=== PATIENT | female | born 1935 | race Caucasian/White ===

== ENCOUNTER → 2016-12-04 | Outpatient (CLI) | payer MEDICARE, OTHER ==
[~2016-12-04] MED LIST: ALEVE220 M1 PO; ASPIRIN (CHILDR81 MG PO; BENADRYL25 MG PO; COLACE100 MG PO; CORAL CALCIUM1 EAC2 PO; CORDARONE,PACE200 MG PO; LIPITOR80 MG PO; MIRALAX17 GM PO; THERA-VITE W/ B1 TAB PO; TYLENOL325 MG PO; VITAMIN D1000 UNIT PO
[2016-12-04 08:00] LABS: CREATININE 0.8 mg/dL (0.5-1.1)
== END | disposition disaster alternative care site (69) ==
LOC: GLAB 07:00 → GRAD 08:00 → GLAB 12-11 10:00 → GRAD 12-11 11:00
PROVIDERS: Neurological Surgery
DX: D32.0 Benign neoplasm of cerebral meninges (principal); M47.892 Other spondylosis, cervical region; M48.02 Spinal stenosis, cervical region; R26.9 Unspecified abnormalities of gait and mobility
CPT/HCPCS: A9577

== ENCOUNTER → 2016-12-24 | Outpatient (CLI) | payer MEDICARE, OTHER ==
[2016-12-24 11:35] LABS: INR - (THERAPEUTIC) 0.96 (0.92-1.07); PROTIME 10.1 SECONDS (9.8-11.4)
== END | disposition disaster alternative care site (69) ==
LOC: LGSMG 11:23
PROVIDERS: Obstetrics & Gynecology Obstetrics
DX: Z01.818 Encounter for other preprocedural examination (principal)

== ENCOUNTER → 2017-01-05 | Outpatient (CLI) | payer MEDICARE, OTHER ==
--- NOTE | ~2017-01-05 | ESTC ---
Cardiac Perfusion Imaging Demographics Patient Name TANYA Sol Gender Female Patient Number [id number] Race Visit Number [id number] Ethnicity Corporate ID Room Number Accession Number [id number] Height 62 inches Date of 1935 Weight 92 pounds MD Kennedi Dunn Date of study 01/05/2017 Physician Caleb Supervising /MICHAELA CAO Technologist Angella Ellis Ordering Physician Areli Soliz Stress claims technician Stress ECG Reading Sorin Nurse Christen Pozo RN Physician Caleb Colby Procedure Procedure Type: Nuclear Stress Test:Pharmacological, Cardiolite Stress Test Procedure Start time: 01/05/2017 00:00 Indications: Abnormal rest ECG and pre surgical clearance. Risk Factors The patient risk factors include:hypercholesterolemia. Conclusions Summary Perfusion Images: The overall quality of the study is fair, due to gastrointestinal tracer uptake. Left ventricular cavity is noted to be normal on the stress and rest studies. There is no evidence of abnormal lung activity. The right ventricle is not visualized and cannot be assessed. Stress SPECT images demonstrate homogenous tracer distribution throughout the myocardium . Gated SPECT imaging reveals normal myocardial thickening and wall motion. The left ventricular ejection fraction was calculated to be >70%. Impression ECG portion of stress test is clinically negative for ischemia by diagnostic criteria. Myocardial perfusion imaging is normal. Overall left ventricular systolic function was normal without regional wall motion abnormalities. There are no previous studies for comparison . Stress Protocols Resting ECG Sinus rhythm Pre-stress physical exam: Patient assessed by Dr. Dunn prior to testing. Predicted HR: 141 bpm ECG Findings Non specific ST-T wave changes Arrhythmias No rhythm abnormality. Symptoms Palpitations. Stress Interpretation Appropriate hemodynamic response to Lexiscan. No significant ST-T wave changes with Lexiscan. ECG portion is negative for ischemia by diagnostic criteria. Imaging Results Applied corrections - Motion correction applied High risk findings Summed scores - Summed stress score: 3 - Summed rest score: 6 - Summed difference score: -3 Stress ejection Ejection fraction:86 % EDV :50 ml ESV :7 ml Stroke volume :43 ml LV mass :83 gr Imaging Protocols Rest Stress Isotope:Tc99m Sestamibi IV Isotope: Tc99m Sestamibi IV Isotope dose:10.8 mCi Isotope dose:33.3 mCi Date:01/05/2017 07:56 Date:01/05/2017 09:32 Technique: SPECT Technique: Gated Supine SPECT Supine Scan Time:45-60 minutes post injection Procedure Medications - Regadenoson (Lexiscan) 0.4 mg IV over 10-15 sec. I.V. 0.4 mg. Medications administered per verbal order and read back to physician prior to administration. Medical History Admission Data Admission date: 01/05/2017 Admission Time: 07:13 Hospital Status: Outpatient. Signatures dtt: CALEB DUNN dtd: 01/05/17 [place] Physician Self Edit
== END | disposition disaster alternative care site (69) ==
LOC: GRAD 07:13
DX: R94.31 Abnormal electrocardiogram [ECG] [EKG] (principal); R26.9 Unspecified abnormalities of gait and mobility; I10 Essential (primary) hypertension; E78.00 Pure hypercholesterolemia, unspecified; Z74.09 Other reduced mobility
CPT/HCPCS: A9500; J2785

== ENCOUNTER 2017-01-07 11:00 | Inpatient (IN) | payer MEDICARE, OTHER ==
[~2017-01-07] VITALS: Ht 157.5 cm; Wt 43.2 kg
--- NOTE | ~2017-01-07 | CON ---
PATIENT'S NAME: RUPAL MARTÍNEZ [facility] AGE: 81 Y [address] ROOM: [place] [address] LOCATION: [facility] ADMIT DATE: 01/08/2017 Consultation DISCHARGE DATE: FAMILY PHYSICIAN: CHARLES SUN MD ATTENDING PHYSICIAN: Talia Mcclendon REFERRING PHYSICIAN: Keaton Choudhary MD REFERRING PHYSICIAN: Talia Mcclendon MD REASON FOR CONSULT: New atrial fibrillation. HISTORY OF PRESENT ILLNESS: This is a 81-year-old white female who was originally hospitalized for an anterior cervical diskectomy on 01/08/2017. Her preop evaluation included a stress test that showed no provocable ischemia with an EF of 86% as well as an echocardiogram that was done on 12/24/2016. The EF then was 60% to 65% and showed mild left ventricular hypertrophy and mild mitral valve regurgitation with mild tricuspid regurgitation. She was doing fairly well postop, but on 01/10, around 3 a.m. in the morning, she converted to an atrial fibrillation with rapid ventricular response. She was reportedly mildly confused. Denied complaints of chest pain or lightheadedness and could not feel the palpitations. Her heart rate was in the 140s to 160s, and her blood pressure was 107/73. She is now alert, oriented, and answers questions appropriately. She denies ever feeling any palpitations, lightheadedness, or off-balance sensations. She does have problems with right-sided weakness, but this was thought to be related to her spinal stenosis. She denies any problems with exertional chest pain. She denies shortness of breath, orthopnea, or PND. She has had problems recently with mild edema noted in her right leg. She denies problems with falls. PAST MEDICAL HISTORY: 1. Spinal stenosis. 2. New paroxysmal atrial fibrillation. 3. Benign cerebral meningioma. 4. White-coat syndrome hypertension. 5. Hyperlipidemia. 6. Osteoporosis. 7. Right footdrop. 8. History of adrenal benign tumor. 9. Dry eye syndrome. 10. Scoliosis. PAST SURGICAL HISTORY: 1. She has had adrenal gland surgery. PATIENT'S NAME: RUPAL MARTÍNEZ [facility] AGE: 81 Y [address] ROOM: [place] [address] LOCATION: [facility] ADMIT DATE: 01/08/2017 Consultation DISCHARGE DATE: FAMILY PHYSICIAN: CHARLES SUN MD ATTENDING PHYSICIAN: Talia Mcclendon 2. Cataract surgery. 3. Colon surgery. 4. Colonoscopy for polypectomy. 5. D and C. 6. Knee surgery. 7. Neuroplasty of median nerve at carpal tunnel. 8. Rectal surgery for polypectomy. 9. Sinus surgery. 10. Spinal tap for drainage of fluid. 11. Thyroid surgery. 12. Tonsillectomy. ALLERGIES: NONE TO MEDICATIONS. HOME MEDICATIONS: 1. Coral Calcium one capsule t.i.d. 2. Vitamin D3 at 1000 units every day. 3. Multivitamin daily. 4. Aspirin 81 mg daily. 5. Lipitor 80 mg daily. 6. Lopressor 25 mg b.i.d. SOCIAL HISTORY: She has never smoked. She is . She has 2 boys. FAMILY HISTORY: Father of an OH at the age of 60. She has a brother who has a pacemaker. Her mother had congestive heart failure, sister had lung cancer, another brother who has AAA, and a sister with a subclavian aneurysm. REVIEW OF SYSTEMS: GENERAL: She denies fevers or chills. HEAD: No history of headache. EYES: No blurred vision. She wears corrective lenses. EARS: She does have some mild hearing loss. NOSE: No epistaxis or rhinorrhea. MOUTH: No gingival bleeding. THROAT: Denies sore throat. She does have some mild swallowing problems since her surgery. PULMONARY: No cough or hemoptysis. GASTROINTESTINAL: Negative for nausea today, although she has had some problems with nausea off and on. GENITOURINARY: Negative for urinary frequency. MUSCULOSKELETAL: She has problems with spinal stenosis. PATIENT'S NAME: RUPAL MARTÍNEZ [facility] AGE: 81 Y [address] ROOM: [id number] [place] [address] LOCATION: [facility] ADMIT DATE: 01/08/2017 Consultation DISCHARGE DATE: FAMILY PHYSICIAN: CHARLES SUN MD ATTENDING PHYSICIAN: Talia Mcclendon NEUROLOGIC: She is weak on her right side. PHYSICAL EXAMINATION: VITAL SIGNS: Blood pressure is 102/56, heart rate 66, and temperature is 98. She is 5 feet 2 inches and weighs 40.6 kg. GENERAL: She is alert and oriented. SKIN: Warm, dry, and pink. CARDIOVASCULAR: Regular, with normal S1 and S2. Her telemetry is showing normal sinus rhythm at this time. NECK: Without JVD or carotid bruits. ABDOMEN: Soft. Bowel sounds are present. EXTREMITIES: Currently, show no peripheral edema. She does have right footdrop. Distal pulses are 2+/4. ASSESSMENT: 1. Paroxysmal atrial fibrillation. She is now in a normal sinus rhythm. We will check a TSH and discuss further need for antiarrhythmic with Dr. Keaton Choudhary. Her recent stress test showed that she had a normal ejection fraction. 2. Elevated cardiac enzymes. Her troponin-I was 0.052 to 0.158 with a CK-MB of 2.6 to 2.9. We will discuss further recommendations with Dr. Keaton Choudhary. The assessment and plan, history of present illness, and physical exam are per Dr. Choudhary. We would like to thank Dr. Mcclendon and Dr. Hernandez for allowing us to participate in her care. SERGIO BATES APRN FOR MD DEIRDRE DUCKWORTH/oralia /[id number] d: 01/10/17 1626 t: 01/29/17 1620, CONSULTATION REPORT
--- NOTE | ~2017-01-07 | CON ---
PATIENT'S NAME: RUPAL MARTÍNEZ [facility] AGE: 81 Y [address] ROOM: [id number] [place], [place] [address] LOCATION: [facility]PCU ADMIT DATE: 01/08/2017 Consultation DISCHARGE DATE: FAMILY PHYSICIAN: CHARLES SUN MD ATTENDING PHYSICIAN: Talia Mcclendon REFERRING PHYSICIAN: Keaton Choudhary MD REASON FOR CONSULTATION: Atrial fibrillation with RVR, apparently new onset. CHIEF COMPLAINT: Right upper arm and right lower extremity weakness. HISTORY OF PRESENT ILLNESS: This is a 81-year-old female who underwent anterior cervical discectomy for her cervical stenosis causing her to have weakness in her right upper and right lower extremity. The procedure was done on January 08, 2017. After that, recovery was uneventful. However, on January 10, 2017 around 3 a.m., the patient was found to have a heart rate in the 140 to 150, blood pressure was in the high 90s to low 100s. The patient was asymptomatic. EKG was performed and it showed atrial fibrillation with RVR. Therefore, hospitalist team was consulted for new onset atrial fibrillation with RVR. Upon my examination, the patient denies any symptoms. She says that she denies any pain in the post surgical area and her weakness is improving, but still has some residual weakness. She denies any chest pain or shortness of breath or palpitation or lightheadedness or leg edema. She also states that she has never been told or has never been diagnosed with any coronary artery disease or atrial fibrillation or heart failure and she never had any heart surgery in the past either. She does complain that she has been having poor appetite and has really not eaten much in the last few days. The patient looks dry on my examination. REVIEW OF SYSTEMS: As mentioned in the history of present illness. All other systems were reviewed and were negative except as mentioned in the history of present illness. PAST MEDICAL HISTORY: 1. Hypertension. 2. Benign tumor of meningioma. 3. Spinal stenosis at multiple levels. 4. Her most recent transthoracic echo was performed on December 24, 2016, at that time the EF was 60% to 65% with mild left ventricular hypertrophy which is concentric and also mild mitral regurgitation and mild tricuspid regurgitation. 5. Her recent stress test for medical clearance was done on January 05, 2017. At that time, it was read as negative for ischemia without any regional wall motion abnormalities. ALLERGIES: NO KNOWN DRUG ALLERGIES. PATIENT'S NAME: RUPAL MARTÍNEZ [facility] AGE: 81 Y [address] ROOM: [id number] [place], [place] [address] LOCATION: [facility]U ADMIT DATE: 01/08/2017 Consultation DISCHARGE DATE: FAMILY PHYSICIAN: CHARLES SUN MD ATTENDING PHYSICIAN: Talia Mcclendon HOME MEDICATIONS: 1. Multivitamin 1 tablet p.o. daily. 2. Vitamin D3 of 1000 units p.o. every morning 1 tablet. 3. Calcium and magnesium oxide and vitamin D3 combination 1 capsule p.o. t.i.d. SOCIAL HISTORY: The patient denies any alcohol or cigarette or any illegal drug use. PAST SURGICAL HISTORY: 1. Status post right adrenalectomy in the past. 2. Cataract surgery. 3. History of colon surgery, details not clear. 4. Knee surgery. 5. Carpal tunnel surgery. 6. Thyroid surgery. 7. Tonsillectomy. FAMILY HISTORY: Father has a history of a heart and also gastric ulcer. She states that her father had an enlarged heart, but denies any myocardial infarction. Her mother also had heart problems. Her mother from myocardial infarction at the age of 60s. PHYSICAL EXAMINATION: VITAL SIGNS: At the time of my evaluation, heart rate was 140, blood pressure was 109/81, respirations 14, temperature 98, saturation 97% on room air. GENERAL APPEARANCE: The patient is alert and oriented x3. Currently, in no acute distress. HEENT: Pupils are equally round and reactive to light. Extraocular muscles intact. Anicteric sclerae. Nasal turbinates are normal bilaterally. CARDIOVASCULAR: Irregularly irregular rate and rhythm. No murmur. No rubs. No gallops. RESPIRATORY: Clear to auscultation. No rales. No rhonchi. No wheezing. No crackles. ABDOMEN: Soft, nontender, nondistended, bowel sounds present. No mass. EXTREMITIES: She has a trace +1 pitting edema in bilateral shins. NEUROLOGICAL: Remarkable for muscle weakness about 3/5 on the right upper extremity and also about 3/5 also in the right lower extremity. This is chronic for her. Otherwise, unremarkable. SKIN: No ulcer. No rash. No cyanosis. LABORATORY DATA: Currently, the only thing we have on the computer is INR which was 0.9 that PATIENT'S NAME: RUPAL MARTÍNEZ [facility] AGE: 81 Y [address] ROOM: [id number] [place], [place] [address] LOCATION: [facility]PCU ADMIT DATE: 01/08/2017 Consultation DISCHARGE DATE: FAMILY PHYSICIAN: CHARLES SUN MD ATTENDING PHYSICIAN: Talia Mcclendon was back in December 24, 2016. IMAGING DATA: EKG on January 10, 2017 at 2:45 a.m. show atrial fibrillation with RVR, heart rate of 146, QRS of 85 milliseconds. Compared to the prior EKG performed on December 24, 2016, was sinus rhythm, heart rate of 65. ASSESSMENT AND PLAN: 1. Regarding her new-onset atrial fibrillation with RVR: Will hydrate her with iv fluids and iv albumin and try lopressor to see if she self convert, if not, will transfer to PCU and keep iv fluids and iv albumin but will start amiodarone bolus then drip due to systolic BP in the low 100's. Her [id number] is high enough to warrant LTAC. However she just had recent cervical discectomy, I will try amiodarone drip due to soft SBP and continue iv fluids first to see if would self convert. Will get cardiology consult in AM and NPO in case requires cardioversion. Check cardiac enzymes and repeat and check lyes to keep K>4 and Mag>2. Will check TSH too. 2. Spinal stenosis s/p cervical diskectomy: Defer to Neurosurgery, patient denies pain at post surgical site. 3. Regarding her hypertension: She is not on any home medication. Will add medications if needed. 4. Regarding her deep vein thrombosis prophylaxis: Defer to Neurosurgery. Time spent in care on the day of consultation 35 minutes where 10 minutes was spent on chart review and the remainder of the time was spent on interview and physical examination and also on counseling. The counseling includes going over the plan of care with the patient and answered all of her questions and concerns to her satisfaction and I also went over the plan of care with the nurse. Further plan will depend on clinical course. Currently, the patient will be transferred to PCU if she does not respond to IV fluids and IV Lopressor and also IV albumin. MD TERESA GILLETTE/oralia /[id number] d: 01/10/17 0516 t: 01/20/17 2110, CONSULTATION REPORT
--- NOTE | ~2017-01-07 | DS ---
PATIENT'S NAME: RUPAL MARTÍNEZ [facility] AGE: 81 Y [address] ROOM: [address] [address] LOCATION: GPCU ADMIT DATE: 01/08/2017 Discharge Summary DISCHARGE DATE: 01/12/2017 FAMILY PHYSICIAN: Martínez Singleton MD ATTENDING PHYSICIAN: Talia Chang REASON FOR ADMISSION: The patient was a scheduled admission for an elective procedure. PROCEDURES PERFORMED: Anterior cervical diskectomy with fusion and plating at C4-C5, C5-C6, and C6-C7. The patient presented with right-sided weakness, and after an exhausted investigation, the only thing found that could possibly explain her findings were the cervical spinal stenosis. TREATMENT RENDERED: The patient was taken to the operating room on the day of admission, and underwent the above surgical procedure. Her surgery was uncomplicated. Postoperatively, the patient was recovering well. However, on the night of January 10, she developed an arrhythmia requiring transfer to the progressive care unit and a Cardiology consult. The patient was treated by Cardiology. Their note is on the chart. From the neurosurgery standpoint, she continued to do well. She did not really get much strength back on the right side, but this may just be because it is still too early after surgery. The patient was also cared for by the hospitalists. By the 12 of January, she had met all the criteria for dismissal. She was discharged home on that day with arrangements to be followed up in clinic both by Cardiology as well as by Neurosurgery. FINAL DIAGNOSES: 1. Cervical spondylosis with radiculopathy and myelopathy. 2. Atrial fibrillation. TALIA CHANG MD CNO/modl /[id number] d: 01/19/17399 t: 01/20/171930, DISCHARGE SUMMARY
--- NOTE | ~2017-01-07 | OR ---
PATIENT'S NAME: RUPAL MARTÍNEZ [facility] AGE: 81 Y [address] ROOM: [id number] [place] [id number] LOCATION: GPCU ADMIT DATE: 01/08/2017 OR/Procedure Report DISCHARGE DATE: FAMILY PHYSICIAN: CHARLES SUN MD ATTENDING PHYSICIAN: Talia Mcclendon SURGEON: Talai Mcclendon MD BROTH MIXER: Darby Umanzor CST. DATE OF PROCEDURE: 01/08/2017 PREOPERATIVE DIAGNOSIS: Cervical spinal stenosis with radiculopathy. POSTOPERATIVE DIAGNOSIS: Cervical spinal stenosis with radiculopathy. PROCEDURES PERFORMED: 1. Anterior cervical diskectomy with decompression of neural elements and foraminotomy at C4-C5. 2. Anterior cervical diskectomy with decompression of neural elements and foraminotomy at C5-C6. 3. Anterior cervical diskectomy with decompression of neural elements and foraminotomy at C6-C7. 4. Structural allograft and morselized allograft fusion at C4-C5. 5. Structural and morselized allograft fusion at C5-C6. 6. Structural and morselized allograft fusion at C6-C7. 7. Use of anterior cervical plate from C4 to C7. ANESTHESIA: General. HISTORY: The patient is a 81-year-old female who presented with right-sided weakness. The patient was investigated extensively for the cause of the weakness, but no definite cause was found. The investigations included MRI of the brain and MRI of the cervical spine. The brain MRI showed a small meningioma, which was not felt to be large enough to be causing the patient's weakness. Cervical spine showed areas of spinal cord compression and in the absence of any other cause, we wondered whether this could be part of the reason for her weakness. With this in mind, surgery was recommended. The procedure, benefits, and risks were discussed with the patient and her . With consent, she was taken to the operating room for surgery. PROCEDURE IN DETAIL: In the operating room, the patient was placed in a supine position and anesthesia was induced. She was intubated. A roll was placed under her shoulders and her neck was kept in extension. An incision was marked out along the anterior border of the right sternomastoid muscle. The whole area was prepped and draped in a sterile fashion. Local anesthesia was infiltrated. The incision was opened with a #10 blade and the platysma was divided. Dissection continued along the anterior border of the PATIENT'S NAME: RUPAL MARTÍNEZ [facility] AGE: 81 Y [address] ROOM: [id number] [place], [place] [address] [facility] ADMIT DATE: 01/08/2017 OR/Procedure Report DISCHARGE DATE: FAMILY PHYSICIAN: CHARLES SUN MD ATTENDING PHYSICIAN: Talia Mcclendon sternomastoid until the omohyoid muscle was seen. Working in the space between the omohyoid and sternomastoid muscles, a plane was developed to the anterior surface of the cervical spine. Self-retaining retractors were placed. Intraoperative x-ray was obtained to confirm that we were at the desired level. Diskectomy was carried out at C4-C5, C5-C6, and C6-C7. The disks were incised with a #15 blade and pituitary rongeur was used to remove disk material. The curette was used to scrape out more disk, which was removed with a rongeur. The microscope was brought in, and under microscopic vision, the rest of the disk was removed and the posterior osteophytes along with the posterior longitudinal ligament were also removed. Distraction pins were used to distract each disk space to help with visualization and removal of the posterior osteophytes and the PLL. Having completed the diskectomy, appropriate-sized pieces of bone grafts were inserted into each disk space, the bone grafts were prefilled with demineralized bone matrix. We had a very snug fit at each level. The metal plate was then used to support the fusion and 2 screws were affixed to C4, C5, C6, and C7. Another x-ray was obtained to confirm that the graft screw and plates were in satisfactory position. Irrigation was used to wash out the debris and hemostasis was achieved. The incision was closed with appropriate suture materials and a sterile dressing was applied. The patient's anesthesia was reversed. She was extubated and taken to the recovery room to continue her recovery. I was present at and performed every aspect of this procedure, assisted at some stages by operating room nurses. There were no apparent intraoperative complications. Swabs, needles, and instruments were all accounted for at the end of the case. Estimated blood loss was less than 100 mL and there was no reason for blood transfusion. It remains to be seen whether the patient will benefit from this procedure as far as the right-sided weakness, however, no other cause could be found to explain the weakness, which is why we embarked on the surgery at this time. MD ANIBAL ROJAS/jaylinl /[id number] d: 01/11/17 1939 t: 01/11/17 2247, OPERATIVE SUMMARY
[~2017-01-07 11:00] MED LIST changes: -ALEVE220 M1 PO; -ASPIRIN (CHILDR81 MG PO; -BENADRYL25 MG PO; -COLACE100 MG PO; -CORDARONE,PACE200 MG PO; -LIPITOR80 MG PO; -MIRALAX17 GM PO; -TYLENOL325 MG PO
[2017-01-10 04:17] LABS: ANION GAP 9.9 (10.0-19.0); CALCIUM 9.1 mg/dL (8.5-10.5); CREATININE 0.6 mg/dL (0.5-1.1); MAGNESIUM 1.8 mg/dL (1.8-2.6); POTASSIUM 3.9 mMol/L (3.7-5.1)
[2017-01-11 11:19] LABS: ALBUMIN 3.4 gm/dL (3.5-5.0); TOTAL BILIRUBIN 0.7 mg/dL (0.0-1.5); TOTAL PROTEIN 6.8 g/dL (6.0-8.4)
[2017-01-12 02:45] LABS: ANION GAP 12.4 (10.0-19.0); BLOOD UREA NITROGEN 4 mg/dL (6-24); CHLORIDE 107 mMol/L (96-110); CO2 24 mMol/L (22-32); CREATININE 0.4 mg/dL (0.5-1.1); MAGNESIUM 1.7 mg/dL (1.8-2.6); POTASSIUM 3.4 mMol/L (3.7-5.1); SODIUM 140 mMol/L (135-145)
[2017-01-12] MEDS ORDERED: CORDARONE,PACE200 MG PO (10:44)
[2017-01-12] MEDS ORDERED: ASPIRIN (CHILDR81 MG PO (10:45)
[2017-01-12] MEDS ORDERED: LIPITOR80 MG PO (10:47)
[2017-01-12] MEDS ORDERED: TYLENOL325 MG PO (10:51)
== END 2017-01-12 11:55 | disposition disaster alternative care site (69) | DRG 472 ==
LOC: GPCU 01-08 08:15 → G3N 01-08 08:15 → GPCU 01-10 04:20
PROVIDERS: Internal Medicine; Internal Medicine Interventional Cardiology; ADMIT Neurological Surgery
DX: M47.812 Spondylosis without myelopathy or radiculopathy, cervical region (principal); G37.8 Other specified demyelinating diseases of central nervous system; G81.91 Hemiplegia, unspecified affecting right dominant side; I48.0 Paroxysmal atrial fibrillation; G35 Multiple sclerosis; I10 Essential (primary) hypertension; E55.9 Vitamin D deficiency, unspecified; E78.5 Hyperlipidemia, unspecified; M47.9 Spondylosis, unspecified; M81.0 Age-related osteoporosis without current pathological fracture
CPT/HCPCS: A9500; C1713; J0282; J0690; J1100; J2001; J2250; J2405; J3475; J3480; J7030; J7040; J7050; J7060; J7120; P9045

== ENCOUNTER 2017-01-24 11:33 | Inpatient (IN) | payer MEDICARE, OTHER ==
[~2017-01-24] VITALS: Ht 157.5 cm; Wt 39.0 kg
--- NOTE | ~2017-01-24 | HP ---
PATIENT'S NAME: RUPAL MARTÍNEZ [facility] AGE: 81 Y [address] ROOM: [address] [address] LOCATION: [facility] [place] ADMIT DATE: 01/24/2017 History & Physical DISCHARGE DATE: FAMILY PHYSICIAN: CHARLES SUN MD ATTENDING PHYSICIAN: LUIS FERNANDO BELL DATE OF SERVICE: CHIEF COMPLAINT: Right lower extremity weakness, unsteady gait. HISTORY OF PRESENT ILLNESS: This is a 81-year-old female with a history cervical spinal stenosis, status post recent fusion by Dr. Mcclendon a few weeks ago, mostly due to persistent right-sided weakness. The patient presents here today with worsening weakness of the right lower extremity. The patient tells me that she went to get up and use the toilet yesterday evening, and after using the toilet, all of a sudden, she was not able to get up from the toilet seat and described her left leg felt like was almost weight. She got up with the help of her and watched herself overnight, but symptoms did not improve. Although she does have significant weakness on the right upper and lower extremities, this current episode is worse than weakness that she has at baseline. The patient has had an extensive workup with Dr. Mcclendon prior to her cervical spine diskectomy with fusion and plating that she had done at beginning of December. The patient otherwise denies any back pain, urinary or bowel incontinence. Sensation appears to be intact to right lower extremity. Denies any cough, shortness of breath. Does describe dizziness and lightheadedness during this time as well. Although her appetite is poor denies any nausea, vomiting. Also denies any dark-looking stool or any signs of acute blood loss. PAST MEDICAL HISTORY: 1. The patient has a history of paroxysmal atrial fibrillation that was identified shortly after surgery this past month. She is on amiodarone and baby aspirin currently. 2. Benign meningoma. 3. Spinal stenosis at multiple levels. SOCIAL HISTORY: The patient denies any history of alcohol, cigarette, or illegal drug use history. FAMILY HISTORY: The patient has history of heart disease and gastric ulcer in her father. Mother also has a history of CT in her 60s. PATIENT'S NAME: RUPAL MARTÍNEZ [facility] AGE: 81 Y [address] ROOM: [address] [address] LOCATION: [facility] [place] ADMIT DATE: 01/24/2017 History & Physical DISCHARGE DATE: FAMILY PHYSICIAN: CHARLES SUN MD ATTENDING PHYSICIAN: LUIS FERNANDO BELL PHYSICAL EXAMINATION: VITAL SIGNS: Blood pressure 131/63, pulse 60, respiratory rate 16, temperature 97.1, saturating 100% on room air. GENERAL: The patient is awake, alert, oriented x3, in no acute distress. HEENT: The patient exhibits significant conjunctival pallor. SKIN: Pale appearing but no rash or lesions noted. CHEST: Clear to auscultation bilaterally. HEART: S1, S2, regular rate and rhythm. ABDOMEN: Soft, nontender, nondistended. EXTREMITIES: Without edema. MUSCULOSKELETAL: No joint effusion, erythema, or point tenderness noted. NEURO: The patient has 1 to 2 out of 5 strength on right lower extremity and a 4/5 strength on left lower extremity, also has 2 to 3 out of 5 strength in right upper extremity and 4/5 strength on left upper extremity. ASSESSMENT AND PLAN: 1. Right lower extremity weakness, acute in nature. The patient does have baseline right-sided weakness that has had extensive workup by Dr. Mcclendon during her previous admission in December. The patient comes here with a sudden worsening of right lower weakness in her legs. She did have recent cervical spine fusion and plating done by Dr. Mcclendon in December as a way to help with her weakness. At this point, we will consult Neurosurgery and have Dr. Mcclendon see and evaluate, and we will await for his recommendation. 2. Symptomatic anemia. Hemoglobin 8.3. Unsure what baseline is. We will give some IV iron for 2 doses and do some iron studies and Hemoccult checks as well. The patient has had a colonoscopy a couple of times, but the last one was several years ago as a screening colonoscopy. She would probably benefit from GI evaluation likely in an outpatient setting. 3. Severe protein-calorie malnutrition. We will give supplementation during hospital and encourage p.o. intake. 4. Unsteady gait. This is related to her chronic right-sided weakness, which is worse now with sudden exacerbation of her right lower leg weakness. We will wait for Neurosurgery evaluation. In the meantime, we will have PT, OT evaluate and work with the patient as well. 5. History of atrial fibrillation. She had a brief episode postop. She is on amiodarone. We will continue this and baby aspirin and has had cardiology evaluation during that time. 6. Deep venous thrombosis. We will use SCDs for now noting anemia. LUIS FENRANDO BELL MD PATIENT'S NAME: RUPAL MARTÍNEZ [facility] AGE: 81 Y [address] ROOM: [place] [address] LOCATION: [facility] [place] ADMIT DATE: 01/24/2017 History & Physical DISCHARGE DATE: FAMILY PHYSICIAN: CHARLES SUN MD ATTENDING PHYSICIAN: LUIS FERNANDO BELL/oralia /[id number] D: T: [id number] HISTORY & PHYSICAL
--- NOTE | ~2017-01-24 | DS ---
PATIENT'S NAME: RUPAL MARTÍNEZ [facility] AGE: 81 Y [address] ROOM: [place] [address] LOCATION: [facility] ADMIT DATE: 01/26/2017 Discharge Summary DISCHARGE DATE: 01/29/2017 FAMILY PHYSICIAN: Martínez Singleton MD ATTENDING PHYSICIAN: Becca Dang PRINCIPAL DIAGNOSES: 1. Acute right lower extremity weakness. 2. Severe anemia, requiring transfusion. 3. Severe protein-calorie malnutrition. 4. Physical deconditioning. HOSPITAL COURSE: This is a 81-year-old female with a recent history of cervical spinal fusion and diskectomy by Dr. Mcclendon who initially presented with an acute worsening of her right lower leg weakness. The patient was promptly evaluated by Neurosurgery and had a repeat MRI done, which did not show any significant changes from that standpoint. The patient continued to do well with physical therapy and has improved from that standpoint. The patient incidentally on initial evaluation was noted to have a hemoglobin of 8.3 without really known baseline, but a repeat hemoglobin had dropped to less than 7 requiring 1 unit of packed cells transfusion. The patient's hemoglobin has stayed stable at above 8.5 since and the patient has symptomatically improved significantly since. Her Hemoccult stool test have become positive x2 here. The patient was seen by GI service as well and the plan is to have followup as outpatient and would need another further workup including colonoscopy in the near future. I have explained this to the patient in great detail as well. The patient was also evaluated by our claim adjuster here Dr. Jewell who recommended that the patient does physical therapy at home and have her followup with him as outpatient. The patient will be discharged home with Home Health and will follow up with GI, PCP, and Physiatry. MEDICATIONS: Per JUL. DISPOSITION: Home with Home Health. PHYSICAL EXAMINATION: GENERAL: The patient is awake, alert, oriented x3 in no acute distress. CHEST: Clear to auscultation bilaterally. HEART: S1 and S2 regular rate and rhythm. ABDOMEN: Soft, nontender, and nondistended. EXTREMITIES: A 2/5 to 3/5 strength in right lower extremity and upper extremity. Greater than 30 minutes were spent in discharge planning and facilitating. PATIENT'S NAME: RUPAL MARTÍNEZ [facility] AGE: 81 Y [address] ROOM: [address] [address] LOCATION: [facility] ADMIT DATE: 01/26/2017 Discharge Summary DISCHARGE DATE: 01/29/2017 FAMILY PHYSICIAN: Martínez Singleton MD ATTENDING PHYSICIAN: Becca Dang MD TASHA MESSINA/modcornel /[id number] d: 01/30/17 0540 t: 02/01/17 1559, DISCHARGE SUMMARY
--- NOTE | ~2017-01-24 | CON ---
[facility] 81 Y [address] ROOM: [place] [address] [place] [facility] [place]: 01/24/2017 Consultation DISCHARGE DATE: FAMILY PHYSICIAN: CHARLES SUN MD ATTENDING PHYSICIAN: LUIS FERNANDO BELL DATE OF CONSULTATION: 01/25/2017 REFERRING PHYSICIAN: LUL GROSS MD CHIEF COMPLAINT: Increasing right upper and lower extremity weakness post C4-C7 anterior cervical diskectomy and fusion done on January 08, 2017, by Dr. Mcclendon. HISTORY OF PRESENT ILLNESS: The patient is a 81-year-old female patient who is known to have longstanding right upper and lower extremity weakness and underwent C4 to C7 anterior cervical diskectomy and fusion by Dr. Mcclendon on January 08, 2017. She did well postoperatively and was eventually discharged home. On January 23, the family noticed increasing weakness in the right upper and lower extremities. The patient was brought back to the hospital and admitted under the hospitalist. I was asked to assess the patient with regard to increasing right-sided weakness. I met the patient on the quigley. She confirmed increasing right-sided weakness. She also reported expected surgical pain. She also reported expected swallowing difficulties. She denied falling. She denied weakness on the left side. PHYSICAL EXAMINATION: GENERAL: The patient was cooperative and pleasant. SKIN: On surgical incision examination, it was healing very well. No evidence of dehiscence or infection. NEUROLOGIC: She was alert and oriented. Motor examination on the upper extremities showed moderate right upper extremity proximal muscle weakness, severe right upper extremity distal muscle weakness. Motor examination on the lower extremities showed severe proximal and distal muscle weakness. Sensory examination on the lower extremities was intact. Sensory examination on the upper extremities was unreliable. IMPRESSION: A 81-year-old female patient who had C4 to C7 anterior cervical diskectomy and fusion on January 08, 2017, by Dr. Mcclendon, who is presenting with increasing right-sided weakness. Her neurological examination confirmed right sided weakness. She has longstanding right-sided body weakness. [facility] 81 Y [address] ROOM: [place] [address] [place] [facility] [place]: 01/24/2017 Consultation DISCHARGE DATE: FAMILY PHYSICIAN: CHARLES SUN MD ATTENDING PHYSICIAN: LUIS FERNANDO BELL PLAN: Cervical spine MRI without contrast to assess increasing right upper and lower extremity weakness. I discussed the situation with the patient and her family. I clearly indicated that repeat imaging is needed to further evaluate increasing right- sided weakness. The patient and her family agreed with the plan. We will arrange for the MRI to be done as soon as possible. It was a pleasure taking care of this patient, and thank you for having us involved. MD PENELOPE CONNELL/modl /[id number] CC: MD Charles Montero MD d: 01/25/17 1206 t: 01/26/17 1131, CONSULTATION REPORT
--- NOTE | ~2017-01-24 | ER ---
[facility] 81 Y [address] ROOM: [address] [address] [place] [facility] [place]: 01/24/2017 ER/Outpatient Report DISCHARGE DATE: FAMILY PHYSICIAN: CHARLES USN MD ATTENDING PHYSICIAN: LUIS FERNANDO BELL TIME OF ARRIVAL: 1133 hours. TIME OF EVALUATION: 1138 hours. CHIEF COMPLAINT: Weakness. HISTORY OF PRESENT ILLNESS: The patient is a 81-year-old female, who presents to the Emergency Department today with chief complaint of weakness. She reports that last night about 7.5 hours prior to arrival, the patient developed primarily right leg weakness. She was on the stool, was unable to get up on herself, was unable to transport herself back to the bed. She did have significant help from her , who essentially had to drag her back to the bed. She denies any fevers or chills. Does report some nausea, no vomiting. No diarrhea or constipation. Denies any blood in her stool. No dark tarry stools. The patient does report she has had some stool Hemoccult at Dr. Sun's office. She reports she thinks they are negative. PAST MEDICAL HISTORY: Atrial fibrillation; osteoporosis; a mass, benign tumor meningioma in the brain; dyslipidemia. PAST SURGICAL HISTORY: Cervical diskectomy [address] Mcclendon, tonsillectomy, thyroid, sinus, carpal tunnel, colon, adrenal, knee, carpal tunnel. SOCIAL HISTORY: The patient denies any tobacco, alcohol, or illicit drug use. ALLERGIES: NO KNOWN DRUG ALLERGIES. MEDICATIONS: Please see list. PRIMARY CARE DOCTOR: [facility] 81 Y [address] ROOM: [address] [address] [place] [facility] [place]: 01/24/2017 ER/Outpatient Report DISCHARGE DATE: FAMILY PHYSICIAN: CHARLES SUN MD ATTENDING PHYSICIAN: LUIS FERNANDO BELL MD. REVIEW OF SYSTEMS: All systems are reviewed by myself and are negative with the exception of those discussed in HPI and past medical history. PHYSICAL EXAMINATION: VITAL SIGNS: Blood pressure 127/60, pulse 59, respiratory rate 16, temperature 97.2, and oxygen saturation 98% on room air. GENERAL: The patient is a 81-year-old female, appears stated age. She does appear pale. HEENT: Normocephalic and atraumatic. Pupils are equal, round, and reactive to light. Conjunctivae are pale. NECK: Supple. She does have a surgical incision on the right side of her neck that is clean, dry, and intact. CARDIOVASCULAR: Bradycardic. No murmurs, rubs, or gallops. LUNGS: Clear to auscultation bilaterally. No wheezes, rales, or rhonchi. ABDOMEN: Soft, nontender, and nondistended. No rebound, rigidity, or guarding. MUSCULOSKELETAL: The patient does have a 3/5 muscle strength in the right lower extremity, otherwise moves all 4 extremities. NEUROLOGICAL: GCS 15. Alert and oriented x4. Cranial nerves 2 through 12 are intact. Normal facial sensation and normal facial movement. Normal smile. Normal tongue. Equal skull splitter strength bilaterally. Downward going toes. Normal rapid hand movement. Normal finger to nose. No clonus. SKIN: Pale, warm, and dry. LABORATORY DATA AND X-RAYS: Lactate is normal. PTT, PT are normal. INR is normal. Procalcitonin is less than 0.05. CMP is unremarkable. LFTs are normal. CBC; hemoglobin 8.3, hematocrit 25.7, otherwise normal. TSH is normal. Free T4 is normal. ProBNP is normal. CT scan of the brain is obtained. It does show stable meningioma and no acute process. EKG is obtained, is interpreted by myself, shows sinus bradycardia with a rate of 58, normal axis, normal interval. No ST elevation. There is nonspecific T-wave. IMPRESSION: 1. Acute right lower extremity weakness. 2. Anemia chronicity unknown at this time with history of iron-deficiency anemia. 3. History of atrial fibrillation with rapid ventricular response. 4. Status post cervical diskectomy 2 weeks ago. 5. Initial visit. PATIENT'S NAME: RUPAL MARTÍNEZ [facility] AGE: 81 Y [address] ROOM: [place] [address] [place] [facility] [place]: 01/24/2017 ER/Outpatient Report DISCHARGE DATE: FAMILY PHYSICIAN: CHARLES SUN MD ATTENDING PHYSICIAN: LUI SFERNANDO BELL EMERGENCY DEPARTMENT COURSE: The patient was brought back to the examination room. Seen and evaluated by myself. IV is established. Laboratory analysis and imaging are obtained as described above. I have discussed results with the patient and the patient's family. With her symptoms certainly stroke is on the differential, the patient is 7.5 hours from last known onset. She falls out of any potential tPA candidate. Her symptoms are mild with just the right lower extremity. I have discussed the case with Dr. Bell, who is the hospitalist on-call. He does agree to accept the patient for further evaluation, treatment, and management. DISPOSITION: The patient is admitted under the care of Dr. Bell, hospitalist service in stable condition. DO CHERELEL CABRERA/oralia /[id number] d: 01/24/171824 t: 01/31/171925, OUTPATIENT REPORT
--- NOTE | ~2017-01-24 | CON ---
PATIENT'S NAME: RUPAL MARTÍNEZ [facility] AGE: 81 Y [address] ROOM: [address] [address] LOCATION: [facility] [place] ADMIT DATE: 01/26/2017 Consultation DISCHARGE DATE: FAMILY PHYSICIAN: CHARLES SUN MD ATTENDING PHYSICIAN: LUIS FERNANDO BELL REFERRING PHYSICIAN: LUL GROSS MD Consult for Ms Alley Garcia, physician certified teacher assistant. This pleasant, 81-year-old, lady is referred for rehab evaluation, admitted on 01/24/2017. She was discharged on 01/12/2017, status post cervical diskectomy with fusion and plating at C4-5, C5-6, C6-7 on 01/08/2017. Details on record per Dr. Mcclendon to relieve cervical spine stenosis. She is known as per previous history to have meningioma of the brain and has been followed. However, she is more weak in the right upper and lower extremity which she has as a chronic issue with weakness; however, recently has increased in weakness. She is now alert and oriented x3, neurologically stable, good ability to comprehend and express. Her voice is clear and not wet. Cranial nerves 2 through 12 are within normal limits. She has no neglect. No facial weakness; however, she has weakness in the right upper and lower extremity. She can comprehend and express without difficulty. She can swallow without difficulty. However, left side upper and lower extremity are within normal limits. Muscle strength, deep tendon reflexes are present and equal throughout. She has so far good bowel and bladder control. She is at high risk of falling because of weakness of the right dorsiflexors. She uses ankle-foot orthosis for quite some time. She also is using these days more a cane in her left hand. I have advised her to use a front-wheeled walker at all time. Vitals are stable and within normal limits. MEDICATIONS: She is on the following medications: 1. Ambien. 2. MiraLAX. 3. Dulcolax. 4. Colace. 5. Benadryl. 6. Zofran. 7. Tylenol. 8. Lipitor. 9. Aspirin. PATIENT'S NAME: RUPAL MARTÍNEZ [facility] AGE: 81 Y [address] ROOM: [id number] [place], [place] [address] LOCATION: [facility] [place] ADMIT DATE: 01/26/2017 Consultation DISCHARGE DATE: FAMILY PHYSICIAN: CHARLES SUN MD ATTENDING PHYSICIAN: LUIS FERNANDO BELL 10. Pacerone. 11. NaCl 0.9%. Given her chronic issues with the right upper and lower extremity weakness, I feel that further investigation is warranted, especially if meningioma is causing this weakness which really has not increased, but lately a little bit, she never is totally weak on the right side. I will continue her on PT/OT. We will do E-stimulation for the dorsiflexors. I would suggest that she, as I mentioned, walk always with the wheeled walker for safety, and I will follow on her; however, if she needs to be admitted for a short period of time, I will be happy to do so, provided she is okayed by the admitting physician. All the above was explained to her; however, if she is discharged without being admitted, I would like to follow on her on an outpatient basis, and she should not drive until she is evaluated. Thank you for this referral. All the above was explained to her in detail. She verbalized understanding and agreement. MD MAIN PEÑA/modl /[id number] d: 01/29/17 1619 t: 01/30/17 0715, CONSULTATION REPORT
--- NOTE | ~2017-01-24 | CON ---
PATIENT'S NAME: RUPAL MARTÍNEZ [facility] AGE: 81 Y [address] ROOM: [place] [address] LOCATION: [facility] [place] ADMIT DATE: 01/24/2017 Consultation DISCHARGE DATE: FAMILY PHYSICIAN: CHARLES SUN MD ATTENDING PHYSICIAN: LUIS FERNANDO DANG DATE OF CONSULTATION: 01/26/2017 REFERRING PHYSICIAN: LUL GROSS MD REFERRING PHYSICIAN: Luis Fernando Dang MD REASON FOR CONSULTATION: Possible GI bleed. IDENTIFICATION: The patient is a pleasant 81-year-old white female, who was admitted on the 24 of January with right upper and lower extremity weakness and unsteady gait. HISTORY OF PRESENT ILLNESS: The patient is a pleasant 81-year-old white female with a history of cervical spinal stenosis, status post recent fusion by Dr. Mcclendon. This was done mostly due to persistent right-sided weakness. On the day of presentation, she noticed the right side to be getting weaker. She was admitted to the hospital. Her MRI did not reveal any anatomical abnormalities at this time other than the postop changes. She was now noted to have a drop in her hemoglobin from 8.3 to 6.6. She has not had a bowel movement in the last couple of days. She has no history of hematemesis. We have been consulted for further evaluation of the anemia. She has apparently received some iron in the past. She is currently getting blood transfusion. PAST MEDICAL HISTORY: Significant for 1. Paroxysmal atrial fibrillation. This was identified shortly after the surgery this month. She is on amiodarone and baby aspirin. 2. Benign meningioma. 3. Spinal stenosis at multiple levels. SOCIAL HISTORY: She denies any alcohol, cigarette, or illegal drug use. FAMILY HISTORY: Significant for heart disease and gastric ulcer in her father. Mother had history of LA in her 60s. [facility]GE[facility] 81 Y [address] ROOM: [place] [address] LOCATION: [facility] [place] ADMIT DATE: 01/24/2017 Consultation DISCHARGE DATE: FAMILY PHYSICIAN: CHARLES SUN MD ATTENDING PHYSICIAN: LUIS FERNANDO DANG ALLERGIES: NO KNOWN DRUG ALLERGIES. CURRENT MEDICATIONS: Include 1. Multivitamin. 2. Cholecalciferol. 3. Calcium. 4. Amiodarone. 5. Aspirin. 6. Atorvastatin. 7. Naproxen sodium. PAST SURGICAL HISTORY: Significant for 1. Right adrenalectomy in the past. 2. Cataract surgery. 3. History of colon surgery, details unclear. 4. Knee surgery. 5. Carpal tunnel surgery. 6. Thyroid surgery. 7. Tonsillectomy. REVIEW OF SYSTEMS: A detailed 10-point review of systems was done. It was found to be negative other than what is mentioned in the history of present illness and past medical history. PHYSICAL EXAMINATION: GENERAL: She is alert and awake, and appears to be in no acute distress. HEENT: Reveals mild pallor. No icterus. VITAL SIGNS: Showed temperature of 97.8, blood pressure of 109/56, respiratory rate of 14, and pulse of 71 per minute. CHEST: Clear to auscultation bilaterally. No wheezing. No rhonchi. NECK: There is an incision on the right neck. No masses are felt. CARDIOVASCULAR: S1 and S2. Peripheral pulses are palpable. ABDOMEN: Gaseous distention. Nontender. No masses are felt. RECTAL: Dark stool and there is evidence of melena. She passes a hard stool. MUSCULOSKELETAL: No obvious deformities are seen. NEUROLOGICAL: There is significant weakness of the right upper and lower extremities. She has minimum movement in those. LABORATORY DATA AND DIAGNOSTIC STUDIES: CT of chest and abdomen and pelvis is negative. PATIENT'S NAME: RUPAL MARTÍNEZ [facility] AGE: 81 Y [address] ROOM: [place] [address] LOCATION: [facility] [place] ADMIT DATE: 01/24/2017 Consultation DISCHARGE DATE: FAMILY PHYSICIAN: CHARLES SUN MD ATTENDING PHYSICIAN: LUIS FERNANDO DANG Complete metabolic screen showed sodium of 139, potassium of 4.2, chloride is 105, bicarb is 28, BUN is 32, creatinine is 0.8, and albumin is 3.1. LFTs are normal. TSH is normal. Hemoglobin is 6.6. Iron studies have been done recently on the 3rd and shows 96% iron saturation and ferritin of 147.5, which is normal. Retic count is low. Blood count on admission was 8.3 with an MCV of 97, WBC 8.9, and platelet count of 289. IMPRESSION AND PLAN: This is a patient with a history of right-sided weakness postoperatively, now presenting with a slight drop in the hemoglobin. There is no clinical evidence of active gastrointestinal bleeding. In fact, she is constipated. In view of this, I think this might be a trivial gastrointestinal bleeding. In view of this, I would suggest that we continue to follow hemoglobin. She transfused to hemoglobin of about 9. In the meanwhile, we should watch for any clinical evidence of bleeding. Because of the recent surgery, I would elect not to do a GI workup at this time. The patient has been duly counseled. All questions have been answered. MD JAMAR BARRAZA/oralia /[id number] d: 01/27/17100 t: 01/27/170, CONSULTATION REPORT
[~2017-01-24 11:33] MED LIST changes: +ASPIRIN (CHILDR81 MG PO; +CORDARONE,PACE200 MG PO; +LIPITOR80 MG PO; +TYLENOL325 MG PO
[2017-01-24 12:16] LABS: BASOPHIL % 0.4 %; EOSINOPHIL % 0.3 %; HEMATOCRIT 25.7 % (33.0-46.0); HEMOGLOBIN 8.3 g/dL (10.0-15.0); IMMATURE GRANULOCYTE % 0.3 %; MCH 31.3 pg (27.0-34.0); MCHC 32.3 gm/dL (32.0-36.5); MONOCYTE # 0.5 K/uL (0.0-1.0); MONOCYTE % 5.2 %; MPV 11.5 fl (9.4-12.4); NEUTROPHIL # (ANC) 7.4 K/uL (1.8-7.8); NEUTROPHIL % 82.8 %; NRBC % 0 /100WBC (0-0.00); PLATELET COUNT 289 K/uL (150-450); RBC 2.65 M/uL (3.50-5.50); WBC 8.9 K/uL (4.0-11.0)
[2017-01-24 12:22] LABS: INR - (THERAPEUTIC) 0.97 (0.92-1.07); PROTIME 10.2 SECONDS (9.8-11.4); PTT 23 SECONDS (25-32)
[2017-01-24 12:46] LABS: ALBUMIN 3.2 gm/dL (3.5-5.0); ALK PHOS 44 IU/L (33-138); ALT 28 IU/L (12-78); ANION GAP 10.6 (10.0-19.0); AST 26 IU/L (10-40); CALCIUM 8.7 mg/dL (8.5-10.5); CHLORIDE 108 mMol/L (96-110); CO2 27 mMol/L (22-32); CPK 49 IU/L (21-215); CREATININE 0.7 mg/dL (0.5-1.1); MAGNESIUM 2.1 mg/dL (1.8-2.6); POTASSIUM 4.6 mMol/L (3.7-5.1); SODIUM 141 mMol/L (135-145); TOTAL PROTEIN 5.9 g/dL (6.0-8.4)
[2017-01-24 12:47] LABS: BLOOD UREA NITROGEN 51 mg/dL (6-24); TOTAL BILIRUBIN 0.2 mg/dL (0.0-1.5)
[2017-01-24] MEDS ORDERED: ALEVE220 M1 PO (15:23)
--- NOTE | 2017-01-25 08:44 | NUR ---
Significant Event: A/O X3 AND COOPERATIVE WITH CARES. C/O HEADACHE AND GAVE TYLENOL AT 0257 WITH PARTIAL RELIEF NOTED. UP WITH 1-2 ASSIST & GAIT BELT. PATIENT IS VERY WEAK WITH R) SIDE THE WEAKEST. R) LEG TENDS TO BUCKLE EASILY ESPECIALLY THE ANKLE. PIVOT TRANSFER TO COMMODE. IV TO R) HAND FLUSHES WELL. GAVE IV IRON LAST NIGHT WITH NO REACTION NOTED AND TOLERATED WELL. IS PALE IN COLOR. DID NOT SLEEP VERY WELL LAST NIGHT. Follow up:
--- NOTE | 2017-01-25 18:16 | NUR ---
AAOX3. Cooperative with cares. Up w/1assist, ANGELES, [place] [facility] ambulated from BR to bed x1 today. MRI of Cspine today. Previous R)neck surgical incision sutured, approximated, intact. Repo side to side. IV s/l'd to RH. R)sided weakness continues. Sensation intact. AFO in shoe at BS. VSS, afebrile, on RA. No PRN meds given.
--- NOTE | 2017-01-26 04:49 | NUR ---
Patient is alert and oriented, on room air. 1-2 assist for R) sided weakness. Incision to anterior neck from previous surgery is approximated and healing nicely. Needs hematests x2. R) hand IV is saline locked, received IV iron tonight. She has rested well after taking a one time dose of benadryl.
[2017-01-26 17:07] LABS: ALBUMIN 3.1 gm/dL (3.5-5.0); ANION GAP 10.2 (10.0-19.0); CALCIUM 9.1 mg/dL (8.5-10.5); CREATININE 0.8 mg/dL (0.5-1.1); POTASSIUM 4.2 mMol/L (3.7-5.1); TOTAL PROTEIN 6.5 g/dL (6.0-8.4)
[2017-01-26 17:09] LABS: TOTAL BILIRUBIN 0.1 mg/dL (0.0-1.5)
--- NOTE | 2017-01-26 17:52 | NUR ---
AAOx3. Up w/one assist, GB, cane. Very weak on right side of body. Need hematests; no BM yet. Hgb 6.6. Will transfuse 1unit PRBCs tonight. CT w/contrast also ordered. VSS, afebrile, on RA. Walked in ott w/PT. Used BR not bsc today. IV s/l'd to RH. Offer Ensures w/milk and clear ensures; eats very small amounts of any food.
--- NOTE | 2017-01-27 04:22 | NUR ---
Significant Event: Sleeping well tonight. Afebrile, all other VSS. 1 unit PRBC's infused this shift without complications. Denies pain. Remains weak. R) side is extremely weak when up. Up to BSC with 1 assist, cane and gait belt. Need stool for hematest x2, no stools this shift, Drinking/voiding adequate amounts. PIV patent and saline locked. Alert and oriented x3, pleasant and cooperative with cares. Follow up:
[2017-01-27 05:43] LABS: BASOPHIL # 0.1 K/uL (0.0-0.2); BASOPHIL % 0.6 %; EOSINOPHIL # 0.2 K/uL (0.0-0.5); EOSINOPHIL % 2.2 %; HEMATOCRIT 26.1 % (33.0-46.0); HEMOGLOBIN 8.9 g/dL (10.0-15.0); IMMATURE GRANULOCYTE # 0.1 K/uL (0.0-0.3); IMMATURE GRANULOCYTE % 0.6 %; LYMPHOCYTE # 1.7 K/uL (0.8-4.0); LYMPHOCYTE % 20.1 %; MCH 31.7 pg (27.0-34.0); MCHC 34.1 gm/dL (32.0-36.5); MCV 92.9 fl (83.0-98.0); MONOCYTE # 0.6 K/uL (0.0-1.0); MPV 11.9 fl (9.4-12.4); NEUTROPHIL % 69.5 %; NRBC % 0 /100WBC (0-0.00); PLATELET COUNT 237 K/uL (150-450); RBC 2.81 M/uL (3.50-5.50); RDW-CV 16.7 % (11.9-14.6); WBC 8.7 K/uL (4.0-11.0)
[2017-01-27 05:56] LABS: ALBUMIN 2.7 gm/dL (3.5-5.0); ANION GAP 9.9 (10.0-19.0); CALCIUM 8.7 mg/dL (8.5-10.5); CREATININE 0.6 mg/dL (0.5-1.1); MAGNESIUM 1.9 mg/dL (1.8-2.6); PHOSPHORUS 2.1 mg/dL (2.5-4.9); POTASSIUM 3.9 mMol/L (3.7-5.1)
--- NOTE | 2017-01-27 09:30 | NUR ---
Yasmine in PT called, patient needs some DME from home - FWW. 1015 Introduced self/role to patient. Lives in [place] with her . We talked about DME options, feel like at this time she just needs a FWW. She isn't sure if it will be for the senior care or short term. Had been walking with a cane. I talked about [employer] and borrowing a walker to see what works for her. Gave her DME list for [facility]. Mentioned [facility] as a place to check out, may be cheaper then a DME location, script will only cover sales tax. Voiced understanding. Will check into those options and let me know if they changed their mind or couldn't find one. Denied any other barriers at home. Added my name to her marker board, will continue to follow.
--- NOTE | 2017-01-27 16:00 | NUR ---
D: Cared for patient from [id number]. Patient vital signs stable patient afebrile today states she "feels like she has more strength this morning". Patient up to bathroom with one assistance tolerating excellent. Patient states she does not have much appetite but did eat cause "she knows she needs to". Handed off care to Bianka at 1100.
--- NOTE | 2017-01-27 17:22 | NUR ---
Significant Event:Is A/O.Sent hematest to lab which was positive.IV Rt.side neck incision intact & glued.Amb with 1 & walker.Has Rt.leg brace.SL Rt.arm.No c/o pain.Pleasant. Follow up:
--- NOTE | 2017-01-28 03:48 | NUR ---
Significant Event: PT AO. VSS ON RA, AFEBRILE. SALINE LOCK TO R HAND. TAKES PILLS WHOLE IN APPLESAUCE. PRN TYLENOL X1 AT 0145 FOR GENERAL ACHES. AMBULATES WITH 1PA, GAITBELT AND WALKER, BRACE FOR R LEG. NOTED R SIDED WEAKNESS. HEMETEST STOOLS. NO BM THIS SHIFT. LAST CHARTED BM WAS 01/23. INCISION TO R SIDE NECK, EDGES APPROXIMATED. Follow up: CONTINUE TO MONITOR
[2017-01-28 05:05] LABS: BASOPHIL # 0.1 K/uL (0.0-0.2); BASOPHIL % 0.8 %; EOSINOPHIL # 0.2 K/uL (0.0-0.5); EOSINOPHIL % 3.2 %; HEMATOCRIT 26.4 % (33.0-46.0); HEMOGLOBIN 8.8 g/dL (10.0-15.0); IMMATURE GRANULOCYTE # 0.1 K/uL (0.0-0.3); IMMATURE GRANULOCYTE % 0.9 %; LYMPHOCYTE # 1.3 K/uL (0.8-4.0); LYMPHOCYTE % 17.5 %; MCH 31.5 pg (27.0-34.0); MCHC 33.3 gm/dL (32.0-36.5); MCV 94.6 fl (83.0-98.0); MONOCYTE # 0.6 K/uL (0.0-1.0); MONOCYTE % 7.5 %; NEUTROPHIL # (ANC) 5.3 K/uL (1.8-7.8); NEUTROPHIL % 70.1 %; NRBC % 0 /100WBC (0-0.00); PLATELET COUNT 239 K/uL (150-450); RBC 2.79 M/uL (3.50-5.50); RDW-CV 16.6 % (11.9-14.6); WBC 7.6 K/uL (4.0-11.0)
[2017-01-28 05:17] LABS: ALBUMIN 2.7 gm/dL (3.5-5.0); ANION GAP 7.3 (10.0-19.0); CALCIUM 8.7 mg/dL (8.5-10.5); CREATININE 0.6 mg/dL (0.5-1.1); PHOSPHORUS 2.4 mg/dL (2.5-4.9); POTASSIUM 4.3 mMol/L (3.7-5.1)
--- NOTE | 2017-01-28 10:15 | NUR ---
Yasmine with PT called and patient wants to talk about placement options, doesn't think she can go home afterall. 1025 Spoke to Alley Nolasco, making a referral to [facility]. Followed up with patient. Talked about options, she feels like [facility] is the best option. Will wait to see what Dr. Jewell has to say.
--- NOTE | 2017-01-28 14:00 | NUR ---
Significant Event: Patient up with 1 assist, gait belt and walker. Denies pain but just states she doesn't feel good. She just feels weak and unable to go home today. Encouraged patient to check with the doctor on rounds. Patient also concerned with bloating--will try a dose of miralax as ordered. Foot drop boot to right lower extremity as ordered. Follow up: Continue to monitor.
--- NOTE | 2017-01-28 23:37 | NUR ---
Significant Event:Up to bathroom with standby assist, walker & gait belt. Does have foot drop boot onto right foot when in bed. Has healing incision to right side of neck from previous surgery. Denies any c/o pain.
--- NOTE | 2017-01-29 02:50 | NUR ---
SIGNIFICANT EVENT: Pt slept well this shift. VSS on RA. 1PA with gaitbelt and walker. PIV to R) hand is SL. Incision to R) neck from cervical discectomy. Possible transfer to [facility] pending OK from Dr Jewell - Care Managment working on. Regular diet. Cooperative with cares.
[2017-01-29 04:20] LABS: BASOPHIL % 0.4 %; EOSINOPHIL # 0.2 K/uL (0.0-0.5); HEMATOCRIT 26.9 % (33.0-46.0); HEMOGLOBIN 8.8 g/dL (10.0-15.0); IMMATURE GRANULOCYTE % 0.4 %; LYMPHOCYTE # 0.9 K/uL (0.8-4.0); LYMPHOCYTE % 9.4 %; MCH 30.9 pg (27.0-34.0); MCHC 32.7 gm/dL (32.0-36.5); MCV 94.4 fl (83.0-98.0); MONOCYTE # 0.5 K/uL (0.0-1.0); MONOCYTE % 5.4 %; MPV 11.6 fl (9.4-12.4); NEUTROPHIL # (ANC) 7.9 K/uL (1.8-7.8); NEUTROPHIL % 82.4 %; NRBC % 0 /100WBC (0-0.00); PLATELET COUNT 241 K/uL (150-450); RBC 2.85 M/uL (3.50-5.50); RDW-CV 16.4 % (11.9-14.6); WBC 9.6 K/uL (4.0-11.0)
[2017-01-29 04:32] LABS: ALBUMIN 2.6 gm/dL (3.5-5.0); ANION GAP 8.5 (10.0-19.0); CREATININE 0.7 mg/dL (0.5-1.1); MAGNESIUM 2.3 mg/dL (1.8-2.6); POTASSIUM 4.5 mMol/L (3.7-5.1)
--- NOTE | 2017-01-29 10:40 | NUR ---
Alley Nolasco let me know Dr. Mortensen was here this am and can not take to [facility]. Plan is home with [facility]. Followed up with patient. She has no preference on [facility] company but would like [facility] to follow. Will make referral to [facility] at Home [facility]. got a walker so no additional DME needed. Will plan on home this afternoon. Aware HHC would not start until tomorrow at the soonest. Gave Face to Face form to Alley. 1125 Called Hernan with [facility], she will come up after lunch to grab the paperwork.
[2017-01-29] MEDS ORDERED: COLACE100 MG PO (13:01)
[2017-01-29] MEDS ORDERED: TYLENOL325 MG PO (13:02)
--- NOTE | 2017-01-29 14:40 | NUR ---
DISCHARGE: D: ORDERS RECEIVED FOR THE PATIENT TO BE DISCHARGED TO HOME TODAY WITH HER . I: DISMISSAL INSTRUCTIONS WERE PREPARED AND REVIEWED WITH THE PATIENT VIRTUALLY AND AGAIN AT THE BEDSIDE. THE FOLLOWING INFORMATION WAS DISCUSSED INCLUDING [employer] TEACHING SHEETS PROVIDED: ANEMIA, [employer] FOR [id number] CALORIES, COLACE, TYLENOL, MIRALAX AND BENADRYL. REVIEWED THAT ALL HER NEW MEDICATIONS ARE OVER THE COUNTER BUT THAT THE DOCTOR DID WRITE A PRESCRIPTION FOR COLACE. ALSO DISCUSSED EATING A HIGH CALORIE DIET. R: THE PATIENT VERBALIZED UNDERSTANDING OF THE DISMISSAL EDUCATION AT THE TIME OF TEACHING WITH NO FURTHER QUESTIONS. P: THE ABOVE INFORMATION WAS SHARED WITH THE PRIMARY NURSE AND THE CHARGE NURSE THAT THE PATIENT'S DISMISSAL EDUCATION WAS COMPLETED. THE PATIENT IS READY FOR DISCHARGE TO THE [facility] VIA WHEEL CHAIR BY NURSING STAFF. JUST AFTER THE PATIENT WAS DISCHARGED DR. SOLIS NOTIFIED THE CHARGE NURSE THAT THE PATIENT WILL NEED AN OUT PATIENT EGD AND COLONOSCOPY. THE VIRTUALLY NURSE CALLED CENTRALIZED SCHEDULING TO SCHEDULE IT FOR 02/12/17 AT 0730. THEN I NOTIFIED THE PATIENT AT HOME AND REVIEWED ALL THE INSTRUCTIONS INCLUDING THE PREOP NURSE WILL CALL HER ON 02/09 FOR HER PHONE INTERVIEW, BE AT THE PATIENT'S CHOICE [facility] AT 0730 TO CHECK IN, NPO AT MIDNIGHT, CLEAR LIQUIDS THE DAY BEFORE AND DRINK HER PREP ORDERED.
[2017-01-29] MEDS ORDERED: BENADRYL25 MG PO (15:03)
[2017-01-29] MEDS ORDERED: MIRALAX17 GM PO (15:06)
--- NOTE | 2017-01-29 17:36 | NUR ---
Significant event: Dismissed to home with cane, 2 pairs of shoes, 1 brace for right leg and foot drop boot and other personal belongings. Home with and granddaughter. Denies pain. Gait is slightly unsteady, using front wheeled walker and gait belt. Right leg and arm weaker than left. Neck incision healing. refusal for flu shot signed. IV saline loc discontinued.
== END 2017-01-29 16:00 | disposition home health service (06) | DRG 555 ==
LOC: GMED 11:33 → GMSU 13:53
PROVIDERS: Emergency Medicine; ADMIT Internal Medicine
PROC: 30233N1 Transfusion of Nonautologous Red Blood Cells into Peripheral Vein, Percutaneous Approach (ICD-10-PCS; principal; 2017-01-26)
DX: R29.898 Other symptoms and signs involving the musculoskeletal system (principal); E43 Unspecified severe protein-calorie malnutrition; I48.0 Paroxysmal atrial fibrillation; D64.9 Anemia, unspecified; Z68.1 Body mass index [BMI] 19.9 or less, adult; R26.81 Unsteadiness on feet; Z98.1 Arthrodesis status; R19.5 Other fecal abnormalities; D32.0 Benign neoplasm of cerebral meninges; Z79.82 Long term (current) use of aspirin; K59.00 Constipation, unspecified; G47.00 Insomnia, unspecified
CPT/HCPCS: G0378; J0171; J1200; J1720; J2916; J7040; J7050; P9016

== ENCOUNTER → 2017-02-06 | Outpatient (CLI) | payer MEDICARE, OTHER ==
[~2017-02-06] MED LIST changes: +ALEVE220 M1 PO; +BENADRYL25 MG PO; +COLACE100 MG PO; +MIRALAX17 GM PO
[2017-02-06 12:44] LABS: HEMOGLOBIN 10.5 g/dL (10.0-15.0)
[2017-02-06 12:47] LABS: HEMATOCRIT 32.8 % (33.0-46.0)
== END ==
LOC: LHHL 12:38
PROVIDERS: Student in an Organized Health Care Education/Training Program
DX: D64.9 Anemia, unspecified (principal); I48.0 Paroxysmal atrial fibrillation